=== PATIENT | male | born 1940 | race Caucasian/White ===

== ENCOUNTER 2021-11-01 14:15 | Outpatient (RCR) | payer MEDICARE, SELFPAY | END 2022-01-02 11:35 | disposition home or self-care (01) | PROVIDERS: PCP Family Medicine; Visit Provider Family Medicine | DX: Z51.89 Encounter for other specified aftercare (principal); M54.42 Lumbago with sciatica, left side | CPT/HCPCS: 97110; 97140 ==

== ENCOUNTER 2022-05-30 10:00 | Outpatient (RCR) | payer MEDICARE, SELFPAY | END 2022-11-09 23:59 | disposition home or self-care (01) | PROVIDERS: PCP Family Medicine; Visit Provider Nurse Practitioner Family | DX: M48.061 Spinal stenosis, lumbar region without neurogenic claudication (principal); M54.50 Low back pain, unspecified; M25.551 Pain in right hip; R26.89 Other abnormalities of gait and mobility; Z51.89 Encounter for other specified aftercare | CPT/HCPCS: 97110; 97116; 97140; 97161 ==

== ENCOUNTER 2022-07-13 09:32 | Outpatient (CLI) | payer MEDICARE, SELFPAY | END 2022-07-13 09:33 | disposition home or self-care (01) | LOC: NFLDREF 07-14 14:47 | PROVIDERS: PCP Family Medicine; Referring Provider Family Medicine; Visit Provider Family Medicine | DX: E11.9 Type 2 diabetes mellitus without complications (principal); E78.5 Hyperlipidemia, unspecified; Z12.5 Encounter for screening for malignant neoplasm of prostate | CPT/HCPCS: 80061; 84153 ==

== ENCOUNTER 2022-07-18 11:23 | Outpatient (CLI) | payer MEDICARE, SELFPAY | END 2022-07-18 11:24 | disposition home or self-care (01) | LOC: LKVREF 11:24 | PROVIDERS: PCP Family Medicine; Visit Provider Family Medicine | DX: Z00.00 Encounter for general adult medical examination without abnormal findings (principal); I10 Essential (primary) hypertension; E78.5 Hyperlipidemia, unspecified; E11.9 Type 2 diabetes mellitus without complications; R35.1 Nocturia | CPT/HCPCS: 82043; 82570 ==

== ENCOUNTER 2023-05-24 10:00 | Outpatient (CLI) | payer MEDICARE, SELFPAY | END 2023-05-24 10:01 | disposition home or self-care (01) | LOC: LKVREF 10:01 | PROVIDERS: PCP Family Medicine; Visit Provider Family Medicine | DX: I10 Essential (primary) hypertension (principal); E11.9 Type 2 diabetes mellitus without complications; Z79.84 Long term (current) use of oral hypoglycemic drugs; Z79.899 Other long term (current) drug therapy | CPT/HCPCS: 80076 ==

== ENCOUNTER 2023-07-17 08:45 | Outpatient (RCR) | payer MEDICARE, SELFPAY ==
--- NOTE | 2023-06-07 13:24 | PT.OPE ---
PT [place] [facility] PT [facility] Out[facility] Eval Start: 06/07/23 10:43 Freq: Status: Active Protocol: Document 06/07/23 13:23 CJT (Rec: 06/07/23 13:24 CJT [id number]) E-signed By Ahmet Ruiz PT Physical Therapy Outpatient Evaluation Insurance Information Recert Due Date 09/05/23 Insurance Name Medicare B Medical Diagnosis Low back pain, left buttock pain, lumbar spinal stenosis Treating Diagnosis Chronic low back pain with L radicular pain Referring Salbador Rodriguez MD Subjective Subjective Pt presents to clinic with low back pain and radiating symptoms down the left leg. Low back has been a chronic issue, radicular symptoms are newer, starting in the last year. He reports MRI in March showed pinched nerve in low back. Pt currently on steroid pack, has not noticed improvement in sx's with this yet. He would also like to improve his balance, reports 1 -2 falls per year in the past 5 years. 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 Pt goals: reduce pain and improve balance to get back to golf Significant PMH: B ZOHRA, L TKA, diabetes Pain Comments 09/30 Date of Last Physician Visit 05/26/23 Current Work Status Office Spec Occupation Realtor Preferred Name Bharat Precautions Therapy Limitations/Systems Review Not Limited Objective Other/Pertinent Objective Lumbar spine AROM Flexion: limited, compensates with knee bend early in ROM Extension: limited *pain in low back R/L side bend: reaches knee joint line *reports pain/ stiffness B R/L rotation: limited B R Hip ROM Hip Flexion: 90 Hip IR: 11 Hip ER: 10 L Hip ROM Hip flexion: 90 Hip IR: 12 Hip ER: 16 Knee ROM: limited B into flexion and extension (R>L) R Hip MMT Flexion: 3/5 Abduction in sittin/5 Adduction in sittin/5 ER: 5/5 IR: 4/5 L Hip MMT Flexion: 4/5 Abduction in sittin/5 Adduction in sittin/5 ER: 5/5 IR: 4/5 R knee MMT Flexion: 5/5 Extension: 5/5 L knee MMT Flexion: 5/5 Extension: 5/5 R ankle MMT DF: 5/5 L ankle MMT DF: 5/5 Lumbar special tests Slump: negative B *reports stretch in hamstrings B SLR: negative B; testing ROM limited due to hamstring tightness Hip special tests SLR: 10 reps on L, 3 on R before terminating due to pain Muscle flexibility 90/90 hamstring: limited B Assessment Assessment/Impression Bharat is a very pleasant 83 year old male who present to our clinic with chronic low back pain with radiating pain into the left buttock and posterior leg. Pt presents with LE strength and mobility impairments (see objective) consistent with treatment diagnosis of chronic low back pain with left radicular pain. Pt also presenting with balance deficits with history of 1-2 falls per year for the last 5 years. The nature of the pts condition was explained and all questions were answered to the pts satisfaction. Skilled PT services are medically necessary to address deficits and return patient to highest level of function. Recommend physical therapy session 1-2/ week for 6-12 weeks. Pt agrees with this plan. Printout of HEP was given for independent completion and pt gives verbal understanding of each exercise. Co-Signed by Ahmet Ruiz, PT, DPT [id number] Primary Functional Limitations Transfers, walking, lifting Plan of Care Rehabilitation Potential Good Physical Therapy Goals STG - To be completed in 2-3 weeks: -Pt will report a decrease in pain by at least a factor of 2 so that they can transition from sitting to standing with more ease and without pain exacerbation. LTG - To be completed in 6-10 weeks: -Pt will be I with HEP so that they may I manage progression of symptoms. -Pt will be able to walk for 20 minutes without an increase in symptoms to allow him to ambulate community length distances and run errands without restriction. -Pt will demonstrate 5/5 MMT for all LE motions B to provide greater support to pelvis/lumbar spine while walking. -Pt will report ability to swing golf club and hit ball with confidence and without pain or LOB so that he may return to golfing with his friends and clients this summer. Treatment Plan/Direct Interventions Electrical Stimulation,Gait Training,Heat,Ice/Cold/ Vasopneumatic,Joint Mobilization,Manual Therapy, Neuromuscular Re-ed,Self-Care/ Home Management,Therapeutic Activities,Therapeutic Exercises Frequency/Duration 1-2/week for 6-12 weeks Patient Will Be Discharged From Therapy Completion of LTG(s),Skills Plateau,Independent w/HEP, Independently Progressing Evaluation Billing Untimed Code Treatment Minutes 25 PT Eval No Charge No Complexity Low Certification Information Initial Certification Date 06/07/23 Ending Certification Date 09/05/23 Provider Signature Shows Agreement With POC & Medical Necessity Physician Signature & Date Requested Please Sign/Date Here Physician Comment/Change : Physician NPI Number # Student Supervision Licensed PT Directed/Approved Treatment, Reviewed POC with Patient,Made Contact with Patient, Participated in Treatment Documentation Reviewed By Saw Offbearer Yes
== END 2023-09-18 15:21 | disposition home or self-care (01) ==
PROVIDERS: PCP Family Medicine; Visit Provider Physician Assistant
DX: M48.061 Spinal stenosis, lumbar region without neurogenic claudication (principal); M54.50 Low back pain, unspecified; M79.18 Myalgia, other site; Z51.89 Encounter for other specified aftercare
CPT/HCPCS: 97110; 97112; 97140; 97161

== ENCOUNTER 2023-11-15 13:14 | Outpatient (CLI) | payer MEDICARE, SELFPAY ==
--- OUTSIDE RECORDS SUMMARY | 2023-11-15 13:17 | XMS_ITS | Clinical Summary ---
Author Organization [facility] Address [address] [place] [address] Care Team Providers Care Gun Fitter Name Role Phone ReidErich gold Primary Care Provider [phone] Allergies No known active allergies Medications Medication Sig Dispensed Refills Start Date End Date Status SIMVASTATIN PO Take 20 mg by mouth At Bedtime Active bisoprolol-hydrochl orothiazide (ZIAC) 10-6.25 MG per tablet Take 1 tablet by mouth daily Active multivitamin w/minerals (THERA-VIT-M) tablet Take 1 tablet by mouth daily Active losartan (COZAAR) 50 MG tablet Take 50 mg by mouth daily Active Cholecalciferol (VITAMIN D3 PO) Take 1 tablet by mouth daily Active metFORMIN (GLUCOPHAGE-XR) 500 MG 24 hr tablet Take 1,000 mg by mouth daily (with breakfast) Active tamsulosin (FLOMAX) 0.4 MG capsule Take 0.4 mg by mouth daily Active ibuprofen (ADVIL/MOTRIN) 600 MG tabletIndications:H istory of total hip replacement, unspecified laterality Take 1 tablet (600 mg) by mouth every 6 hours as needed for pain (mild) 30 tablet 10/18/2020 Active bisacodyl (DULCOLAX) 5 MG EC tabletIndications:S pecial screening for malignant neoplasms, colon Take 2 tablets at 3 pm the day before your procedure. If your procedure is before 11 am, take 2 additional tablets at 8 pm. If your procedure is after 11 am, take 2 additional tablets at 6 am. For additional instructions refer to your colonoscopy prep instructions. 4 tablet 01/17/2022 Active polyethylene glycol (GOLYTELY) 236 g suspensionIndicatio ns:Special screening for malignant neoplasms, colon The night before the exam at 6 pm drink an 8-ounce glass every 15 minutes until the jug is half empty. If you arrive before 11 AM: Drink the other half of the Golytely jug at 11 PM night before procedure. If you arrive after 11 AM: Drink the other half of the Golytely jug at 6 AM day of procedure. For additional instructions refer to your colonoscopy prep instructions. 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 Immunizations Name Administration Dates Next Due COVID-19 MONOVALENT 12+ (Pfizer) 06/19/2020,09/2020 HepB, Unspecified 04/07/1991,03/10/1991 Influenza Vaccine 65+ (Fluzone HD) 02/05/2020 Pneumococcal, Unspecified 07/26/2017 TDAP Vaccine (Adacel) 02/16/2015 Zoster recombinant adjuvanted (SHINGRIX) 021 Social History Tobacco Use Types Packs/Day Years Used Date Smoking Tobacco: Never Smokeless Tobacco: Never Alcohol Use Standard Drinks/Week Comments Yes 0 (1 standard drink = 0.6 oz pur e alcohol) 6 drinks weekly Adolescent Education Answer Date Record ed Getting School Help Needed Not on file 02/04 Sex and Gender Information Value Date Recorded Sex Assigned at Not on file Gender Identity Not on file Sexual Orientation Not on file Last Filed Vital Signs Vital Sign Reading Time Taken Comments Blood Pressure 94/57 02/01/2022 10:36 AM CDT Pulse 55 02/01/2022 10:30 AM CDT Temperature 35.7 ??C (96.2 ??F) 02/01/2022 9:45 AM CD T Respiratory Rate 18 02/01/2022 10:3 6 AM CDT Oxygen Saturation 95% 02/01/2022 10: 36 AM CDT Inhaled Oxygen Concentration - - Weight 104.4 kg (230 lb 1.6 oz) 10/18/2020 9:10 AM CDT Height 170.2 cm (5' 7) 10/18/2020 9:10 AM CDT Body Mass Index 36.04 10/18/2020 9:10 AM CDT Plan of Treatment Health Maintenance Due Date Last Done Comments ADVANCE CARE PLANNING 1940 ANNUAL REVIEW OF HM ORDERS 1941 LIPID 1941 RSV VACCINE ( & 60+) (1 - 1-dose 60+ series) 2001 FALL RISK ASSESSMENT 2006 MEDICARE ANNUAL WELLNESS VISIT 2006 COVID-19 Vaccine ( season) 2022 01/21/2022, 02/02/2021, 06/19/2020, Additional history exists PHQ-2 (once per calendar year) 2023 INFLUENZA VACCINE (#1) 2023 , 02/04/2021, 01/21/2021, Additional history exists DTAP/TDAP/TD IMMUNIZATION (2 - Td or Tdap) 02/16/2025 02/16/2015 ZOSTER IMMUNIZATION Completed 01/01/2021, Pneumococcal Vaccine: 65+ Years Completed 01/21/2021, 02/21/2019, 05/03/2018, Additional history exists HPV IMMUNIZATION Aged Out No longer e ligible based on patient's age to complete this topic IPV IMMUNIZATION Aged Out No longer e ligible based on patient's age to complete this topic MENINGITIS IMMUNIZATION Aged Out No l onger eligible based on patient's age to complete this topic RSV MONOCLONAL ANTIBODY Aged Out No l onger eligible based on patient's age to complete this topic Medical Devices Implanted Type Area Meat Puller Device Identifier Shelf Expiration Date Model / Serial / Lot Imp Scr Zim 6.5x25mm Acet Cup Self Tap [id number] - [id number] Implanted:Qty: 1 on 10/18/2020 by Fabio Lauren MD at [facility] Metallic Hardware/An chor Left: Hip [employer] 06/30/203054-6017-516- 25 / / [id number] Imp Scr Zim 6.5x30mm Acet Cup Self Tap [id number] - [id number] Implanted:Qty: 1 on 10/18/2020 by Fabio Lauren MD at [facility] Metallic Hardware/An chor Left: Hip [employer] 05/22/2030 22-6865-654- 30 / / [id number] Imp Shell Biom G7 Acetab Pps Santana Hole 54mm Sz F [id number] - [id number] Implanted:Qty: 1 on 10/18/2020 by Fabio Lauren MD at [facility] Total Joint Component/I nsert Left: Hip [employer] 07/16/2030220899677 / / [id number] Imp Stem Femoral Zim Size 7.5 41-2901-319-00 - [id number] Implanted:Qty: 1 on 10/18/2020 by Fabio Lauren MD at [facility] Total Joint Component/I nsert Left: Hip [employer] 08/20/202801-1258-486- 00 / / [id number] Bone Cement Simplex Full Dose 6191-1-001 Implanted:Qty: 1 on 03/01/2015 by Fabio Lauren MD at [facility] Left: Knee [employer] 08/20/2017 6191-1-001 / / [id number] Imp Comp Femoral Zim Nexgen F Std Ps Lt [id number] Implanted:Qty: 1 on 03/01/2015 by Fabio Lauren MD at [facility] Left: Knee [employer] 06/20/202312-7746-311- 51 / / [id number] Imp Plate Tibial Zim Nexgen Size 5 Implanted:Qty: 1 on 03/01/2015 by Fabio Lauren MD at [facility] Left: Knee [employer] 12/21/202493-4864-848- 01 / / [id number] Imp Art Surface Zim Nexgen Lps Ef 5-6 10mm [id number] Implanted:Qty: 1 on 03/01/2015 by Fabio Lauren MD at [facility] Left: Knee [employer] 06/20/202263-6682-356- 10 / / [id number] Imp Comp Patella Zim Nexgen 9.0x35mm Implanted:Qty: 1 on 03/01/2015 by Fabio Lauren MD at [facility] Left: Knee [employer] 10/20/2022 45-8972-350- 35 / / [id number] Acetabular Liner, High Wall, 36mm Head Ming, F Liner Ming Implanted:Qty: 1 on 10/18/2020 by Fabio Lauren MD at [facility] Left: Hip [employer] 05/28/2024 [id number] / / [id number] Biolox Delta, Ceramic Femoral Head, M, 36/0, 12/14 Taper Implanted:Qty: 1 on 10/18/2020 by Fabio Lauren MD at [facility] Left: Hip [employer] 06/20/2030 78-6842-850- 02 / / [id number] Advance Directives For more information, please contact: [phone] * Full Code (Latest Code Status on File) Date Activated Date Inactivated Comments 10/18/2020 1:41 PM 10/19/2020 1:15 PM All basic an d advanced life-sustaining interventions are performed as appropriate Question Answer Comments Code status determined by: Unable to dis cuss and no AD/POLST on file; continue PREVIOUSLY ORDERED code status * Full Code Date Activated Date Inactivated Comments 03/01/2015 1:11 PM 03/03/2015 5:21 PM Care Teams Gun Fitter Relationship Specialty Start Date End Date Erihc Mathews [address] [address] PCP - General Family Medicine 09/16/20
--- OUTSIDE RECORDS SUMMARY | 2023-11-15 13:17 | XMS_ITS | Referral Summary ---
Author Organization [facility] Address [address] [place] [address] Care Team Providers Care Manager Sql Name Role Phone ReidErich gold Primary Care Provider [phone] Allergies No known active allergies Medications Medication [...] 10/18/2020 9:10 AM CDT Plan of Treatment Not on file Medical Devices Implanted Type Area Sample Cutter Device Identifier Shelf Expiration Date Model / Serial / Lot Imp Scr Zim 6.5x25mm Acet Cup Self Tap [id number] - [id number] Implanted:Qty: 1 on 10/18/2020 by Fabio Lauren MD at [facility] Metallic Hardware/An chor Left: Hip [employer] 06/30/203078-5771-364- / / [id number] Imp Scr Zim 6.5x30mm Acet Cup Self Tap 33-5224-214-30 - [id number] Implanted:Qty: 1 on 10/18/2020 by Fabio Lauren MD at [facility] Metallic Hardware/An chor Left: Hip [employer] 05/22/203042-2590-982- 30 / / [id number] Imp Shell Biom G7 Acetab Pps Santana Hole 54mm Sz F [id number] - [id number] Implanted:Qty: 1 on 10/18/2020 by Fabio Lauren MD at [facility] Total Joint Component/I nsert Left: Hip [employer] 07/16/2030 [id number] / / [id number] Imp Stem Femoral Zim Size 7.5 26-6806-802-00 - [id number] Implanted:Qty: 1 on 10/18/2020 by Fabio Lauren MD at [facility] Total Joint Component/I nsert Left: Hip [employer] 08/20/202823-6145-968- 00 / / [id number] Bone Cement Simplex Full Dose 6191-1-001 Implanted:Qty: 1 on 03/01/2015 by Fabio Lauren MD at [facility] Left: Knee [employer] 08/20/2017 6191-1-001 / / [id number] Imp Comp Femoral Zim Nexgen F Std Ps Lt [id number] Implanted:Qty: 1 on 03/01/2015 by Fabio Lauren MD at [facility] Left: Knee [employer] 06/20/2023 35-2040-813- 51 / / [id number] Imp Plate Tibial Zim Nexgen Size 5 Implanted:Qty: 1 on 03/01/2015 by Fabio Lauren MD at [facility] Left: Knee [employer] 12/21/2024 80-5755-106- 01 / / [id number] Imp Art Surface Zim Nexgen Lps Ef 5-6 10mm [id number] Implanted:Qty: 1 on 03/01/2015 by Fabio Lauren MD at [facility] Left: Knee [employer] 06/20/202233-5020-412- 10 / / [id number] Imp Comp Patella Zim Nexgen 9.0x35mm Implanted:Qty: 1 on 03/01/2015 by Fabio Lauren MD at [facility] Left: Knee [employer] 10/20/202280-9276-393- 35 / / [id number] G7 Acetabular Liner, High Wall, 36mm Head Ming, F Liner Ming Implanted:Qty: 1 on 10/18/2020 by Fabio Lauren MD at [facility] Left: Hip [employer] 05/28/2024 [id number] / / [id number] Biolox Delta, Ceramic Femoral Head, M, 36/0, 12/14 Taper Implanted:Qty: 1 on 10/18/2020 by Fabio Lauren MD at [facility] Left: Hip [employer] 06/20/2030 19-0488-404- 02 / / [id number] Advance Directives For more information, please contact: [phone] * Full Code (Latest Code Status on [...] 1:11 PM 03/03/2015 5:21 PM Care Teams Manager Sql Relationship Specialty Start Date End Date Erich Mathews [address] [id number] PCP - General Family Medicine 09/16/20
--- OUTSIDE RECORDS SUMMARY | 2023-11-15 13:18 | XMS_ITS | Clinical Summary ---
Author Organization [facility] [employer] Address [place], [place] [address] Care Team Providers Care Roll Press Operator Name Role Phone Tariq Lovelace MD Primary Care Provider [phone] Allergies No known active allergies Medications Medication Sig Dispensed Refills Start Date End Date Status bisoprolol-hydrochloro thiazide, 10-6.25 mg, (ZIAC) 10-6.25 mg tablet Take 1 tablet by mouth once daily. 0 07/27/2011 Active lisinopril (PRINIVIL; ZESTRIL) 10 mg tablet Take 1 tablet by mouth once daily. 0 07/27/2011 Active simvastatin (ZOCOR) 20 mg tablet Take 1 tablet by mouth at bedtime. 0 07/28/2011 Active naproxen (ALEVE) 220 mg tablet Take 1 tablet by mouth every 8 hours if needed. 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 Places patient in 64th percentile. Hyperlipidemia Hypertension Family History Medical History Relation Name Comments Good Health Brother 3 Good Health Brother 4 Diabetes Father age 69 Cancer Mother age 85 Relation Name Status Comments Brother 1 Alive Brother 2 Alive Brother 3 Brother 4 Father Mother Social History Tobacco Use Types Packs/Day Years Used Date Smoking Tobacco: Never Assessed Sex and Gender Information Value Date Recorded Sex Assigned at Not on file Gender Identity Not on file Sexual Orientation Not on file Obstetrics History Last Filed Vital Signs Vital Sign Reading Time Taken Comments Blood Pressure 124/76 07/28/2011 12:50 PM CDT Pulse 72 07/28/2011 12:50 PM CDT Temperature - - Respiratory Rate - - Oxygen Saturation - - Inhaled Oxygen Concentration - - Weight 111.6 kg (246 lb 1.6 oz) 012 12:50 PM CDT Height 172.7 cm (5' 8) 07/28/2011 12:5 0 PM CDT Body Mass Index 37.42 07/28/2011 12:50 PM CDT Plan of Treatment Health Maintenance Due Date Last Done Comments Tdap 1952 Depression screening for age 12+ 1953 BMI (ht and wt on same day) for age 18+ 1959 Tetanus booster 1961 Zoster (shingles) series for age 50+ (1 of 2) 03/21/19 91 Pneumococcal series for age 65+ (1 of 1 - PCV) 006 COVID-19 vaccine series ( - 2022-24 season) 3 Influenza for age 65+ 12/23/2023 Insurance Payer Benefit Plan / Group Subscriber ID Effective Dates Phone Address Type MEDICARE PART B - HB USE ONLY MEDICARE PART B HB ONLY [id number] 2006-Press[place] t ATTN: CLAIMS [address] [place] [address] [employer]OSS MR [employer] [place] BLUE MR PB ONLY [id number] 2009-Present [address] [address] [place] [address] BLUE [employer]OSS [employer] [place] BLUE HB ONLY [id number] 2009-Present [address] [address] [place] [address] Care Teams Roll Press Operator Relationship Specialty Start Date End Date Tariq Lovelace MD PCP - General Family Practice 07/13/11
--- OUTSIDE RECORDS SUMMARY | 2023-11-15 13:18 | XMS_ITS | Encounter Summary ---
Author Organization [facility] Address [address] [place] [address] Care Team Providers Care Psychologist Name Role Phone Erich Mathews Primary Care Provider [phone] Encounter Details Date Type Department Care Team (Late st Contact Info) Description 09/06/2020 Documentation Only INTERFACED REPORT Unknown, Provider Social History Tobacco Use Types Packs/Day Years Used Date Smoking Tobacco: Never Alcohol Use Standard Drinks/Week Comments Yes 0 (1 standard drink = 0.6 oz pur e alcohol) 6 drinks weekly Sex and Gender Information Value Date Recorded Sex Assigned at Not on file Gender Identity Not on file Sexual Orientation Not on file documented as of this encounter Plan of Treatment Not on file documented as of this encounter Visit Diagnoses Not on filedocumented in this encounter Care Teams Psychologist Relationship Specialty Start Date End Date Erich Mathews [address] [phone] PCP - General Family Medicine 09/16/20 documented as of this encounter
--- OUTSIDE RECORDS SUMMARY | 2023-11-15 13:18 | XMS_ITS | Encounter Summary ---
Author Organization [facility] Address [address] [place] [address]. [place] [address] Care Team Providers Care Field Service Specialist Name Role Phone Tariq Lovelace MD Primary Care Provider [phone] Erich Mathews Primary Care Provider [phone] Encounter Details Date Type Department Care Team (Late st Contact Info) Description 02/10/[address] [facility] [address] [place] [address] Fabio Lauren MD [facility] [address] [place] [address] Pre-operative laboratory examination (Primary Dx) Social History Tobacco Use Types Packs/Day Years Used Date Smoking Tobacco: Never Assessed Sex and Gender Information Value Date Recorded Sex Assigned at Not on file Gender Identity Not on file Sexual Orientation Not on file documented as of this encounter Plan of Treatment Not on file documented as of this encounter Results * Methicillin Resistant Staph Aureus PCR (02/11/2015 5:55 PM CDT) Specimen Description [facility] Methicillin Resist/Sens S. aureus PCR Negative MRSA Negative: SA Negative ??MRSA and Staphylococcus aureus target DNA not detected, presumed negative for MRSA and SA colonization or the number of bacteria present may be below the limit of detection for the assay. FDA approved assay performed using [employer] GeneXpert(R) real-time PCR. [facility] 02/11/2015 5:55 PM CDT 02/11/2015 6:20 PM CDT Fabio Lauren MD LAB - MICRO GENE RAL ORDERABLES [facility] [address] [place] [address], [facility] [address] [place] [address], [facility] [phone] documented in this encounter Visit Diagnoses Diagnosis Pre-operative laboratory examination- Primary Pre-procedural laboratory examination documented in this encounter Care Teams Field Service Specialist Relationship Specialty Start Date End Date Tariq Lovelace MD [address] [place] [id number] PCP - General Family Practice 08/14/11 05/23/16 Erich Mathews [address] [phone] PCP - General Family Medicine 09/16/20 documented as of this encounter
== END 2023-11-15 13:15 | disposition home or self-care (01) ==
LOC: LKVREF 13:15
PROVIDERS: PCP Family Medicine; Visit Provider Family Medicine
DX: Z00.00 Encounter for general adult medical examination without abnormal findings (principal); I10 Essential (primary) hypertension; E78.5 Hyperlipidemia, unspecified; E11.65 Type 2 diabetes mellitus with hyperglycemia; E66.9 Obesity, unspecified; N40.1 Benign prostatic hyperplasia with lower urinary tract symptoms; R35.1 Nocturia; Z12.5 Encounter for screening for malignant neoplasm of prostate
CPT/HCPCS: 80053; 80061; 82043; 82570; G0103

== ENCOUNTER 2024-08-18 09:10 | Outpatient (CLI) | payer MEDICARE, SELFPAY | END 2024-08-18 09:11 | disposition home or self-care (01) | LOC: NFLDREF 08-19 21:51 | PROVIDERS: PCP Family Medicine; Referring Provider Family Medicine; Visit Provider Family Medicine | DX: I10 Essential (primary) hypertension (principal); E78.5 Hyperlipidemia, unspecified; E11.9 Type 2 diabetes mellitus without complications; E66.9 Obesity, unspecified; Z12.5 Encounter for screening for malignant neoplasm of prostate | CPT/HCPCS: 80053; 80061; 82043; 82570; G0103 ==